=== PATIENT | female | born 1945 | race Two or more races ===

== ENCOUNTER 2020-07-13 20:34 | Emergency (ER) | payer OTHER ==
[~2020-07-13] VITALS: Ht 154.9 cm; Wt 81.6 kg
[2020-07-13] MEDS ORDERED: Labetalol 5mg/ml 20ml vial IV ONE (21:00)
--- NOTE | 2020-07-13 21:15 | Emergency Room Report ---
History of Present Illness General Chief Complaint: Hypertension Source: Patient Present Illness HPI 74-year-old female with a history of hypertension supposed to be taking propranolol daily here with hypertension and headache. Patient has been noncompliant with her propranolol and says "I only take it when I feel like I need to." She says that she only takes it about once per week. She supposed be taking it daily. Says that over the past several days she has had a worsening generalized headache. Has not taken her propranolol in several days. Denies vision changes, focal numbness or weakness, chest pain, palpitation, shortness of breath, cough, back pain, abdominal pain, nausea, vomiting, diarrhea, dysuria. Allergies: Coded Allergies: No Known Allergies (Unverified , 07/13/20) COVID-19 Screening Contact w/high risk pt: No Experienced COVID-19 symptoms?: No COVID-19 Testing performed AG SERVICE MANAGER: No Nursing Documentation-PMH Hx Diabetes: Yes Review of Systems All Other Systems: negative except mentioned in HPI Physical Exam Vital Signs Date Time Temp Pulse Resp B/P (MAP) Pulse Ox O2 Delivery O2 Flow Rate FiO2 07/13/20 20:45 98.2 72 18 218/88 (131) 96 Room Air Sp02 EP Interpretation: reviewed, normal General Appearance: no apparent distress, alert, non-toxic Head: normocephalic, atraumatic Eyes: bilateral eye normal inspection, bilateral eye PERRL ENT: hearing grossly normal, normal pharynx, no angioedema, normal voice Neck: full range of motion, supple/symm/no masses Respiratory: chest non-tender, lungs clear, normal breath sounds, speaking full sentences Cardiovascular #1: regular rate, rhythm, no edema Cardiovascular #2: 2+ carotid (R), 2+ carotid (L), 2+ radial (R), 2+ radial (L), 2+ dorsalis pedis (R), 2+ dorsalis pedis (L) Gastrointestinal: normal bowel sounds, non tender, soft, non-distended, no guarding, no rebound Rectal: deferred Genitourinary: normal inspection, no CVA tenderness Musculoskeletal: back normal, normal range of motion, gait/station normal, non- tender Neurologic: alert, motor strength/tone normal, oriented x3, sensory intact, responsive, speech normal Psychiatric: judgement/insight normal, memory normal, mood/affect normal, no suicidal/homicidal ideation Lymphatic: no adenopathy Medical Decision Making Diagnostic Impression: Primary Impression: Hypertension ER Course EKG: NSR, no ischemia, intervals WNL. No ectopy. Rate 70 bpm Rhythm strip: patient monitored for arrhythmias - no malignant dysrhythmias, runs of PVCs, nor pauses noted CXR: No infiltrate/effusion. Mediastinum within normal limits. No consolidations. No free air under the diaphragm. No bony abnormalities CT head: Unremarkable 74-year-old woman with history of hypertension supposed be taking propranolol, is noncompliant, here with hypertension. When patient arrived she was complaining of headache and vision changes. She did vomit once in the emergency department nonbilious nonbloody. EKG unremarkable. Chest x-ray and CT head were also normal. Currently awaiting results of blood work and urinalysis. Signed out to oncoming physician. Last Vital Signs Date Time Temp Pulse Resp B/P (MAP) Pulse Ox O2 Delivery O2 Flow Rate FiO2 07/13/20 20:45 98.2 72 18 218/88 (131) 96 Room Air Don Bowman M.D. Jul 13, 2020 21:14
[2020-07-13 21:21] VITALS: BP 189/90
--- NOTE | 2020-07-13 21:24 | NUR ---
Nurse Note: Pt walked in c/o dizziness, HTN, n/v since 07/12. Pt stated she takes propanlol only when she feels her BP is elevated. 218/88 at triage. PT stated she is not consistant with her medications; last blood sugar was >300. Pt placed on clinical research monitor; awake and alert. All orders completed; blood sent to lab. Pt taken to CT.
[2020-07-13 21:39] LABS: BASOPHILS % (AUTO) 0.9 % (0.0-2.0); EOSINOPHILS % (AUTO) 0.9 % (0.0-3.0); HEMATOCRIT 39.7 % (37.0-47.0); HEMOGLOBIN 12.8 G/DL (12.0-16.0); LYMPHOCYTES % (AUTO) 32.9 % (20.0-45.0); MEAN CORPUSCULAR VOLUME 95 FL (80-99); MONOCYTES % (AUTO) 6.3 % (1.0-10.0); PLATELET COUNT 314 K/UL (150-450); RED BLOOD COUNT 4.16 M/UL (4.20-5.40); RED CELL DISTRIBUTION WIDTH 12.8 % (11.6-14.8); WHITE BLOOD COUNT 13.5 K/UL (4.8-10.8)
[2020-07-13 21:47] VITALS: BP 173/61
--- NOTE | 2020-07-13 21:47 | NUR ---
Nurse Note: Pt back from CT; attached back to meter maker. BP 173/61
--- NOTE | 2020-07-13 21:51 | Diagnostic Imaging Report ---
EXAM: CT Head Without Intravenous Contrast CLINICAL HISTORY: AMS TECHNIQUE: Axial computed tomography images of the head/brain without intravenous contrast. CTDI is 53.4 mGy and DLP is 992.1 mGy-cm. One or more of the following dose reduction techniques were used: automated exposure control, adjustment of the mA and/or kV according to patient size, use of iterative reconstruction technique. COMPARISON: No relevant prior studies available. FINDINGS: Brain: No hemorrhage. No edema. Ventricles: No ventriculomegaly. Bones/joints: No acute fracture. Soft tissues: Unremarkable. Sinuses: No acute sinusitis. Mastoid air cells: No mastoid effusion. IMPRESSION: No acute intracranial process.
[2020-07-13 21:53] LABS: ANION GAP 8 mmol/L (5-15); BLOOD UREA NITROGEN 20 mg/dL (7-18); CALCIUM 9.4 MG/DL (8.5-10.1); CARBON DIOXIDE 26 MMOL/L (21-32); CHLORIDE 98 MMOL/L (98-107); CREATININE 0.9 MG/DL (0.55-1.30); POTASSIUM 3.7 MMOL/L (3.5-5.1); SODIUM 132 MMOL/L (136-145)
[2020-07-13 21:58] LABS: ALANINE AMINOTRANSFERASE 27 U/L (12-78); ALBUMIN 3.2 G/DL (3.4-5.0); ALBUMIN/GLOBULIN RATIO 0.9 (1.0-2.7); ALKALINE PHOSPHATASE 91 U/L (46-116); ASPARTATE AMINO TRANSFERASE 14 U/L (15-37); BILIRUBIN,TOTAL 0.4 MG/DL (0.2-1.0)
[2020-07-13] MEDS ORDERED: NORVASC10 MG ORAL (22:03)
--- NOTE | 2020-07-13 22:10 | NUR ---
Called [facility] for order picker
[2020-07-13 22:15] VITALS: BP 170/80
--- NOTE | 2020-07-13 22:15 | NUR ---
ED Nurse Note: Pt cleared by health care Provider for discharge. DC instructions/prescription was given and explained to pt and verbalized understanding of teachings. Instructed pt to follow up with PCP within one week. All medical deviecs such as ID band removed. IV removed and site bandaged. Pt is AAO x4, ambulatory and left with all personal belongings.
--- NOTE | 2020-07-14 11:57 | Diagnostic Imaging Report ---
Indication: Chest pain Technique: One view of the chest Comparison: none Findings: Lungs and pleural spaces are clear. Heart size is normal. Impression: No acute process
== END 2020-07-13 22:15 | disposition home or self-care (01) ==
LOC: EMR 21:00
DX: I10 Essential (primary) hypertension (principal); E11.9 Type 2 diabetes mellitus without complications
CPT/HCPCS: 36415; 70450; 71045; 80053; 83690; 83880; 84484; 85025; 93005; 96374; 96375; J2405; Z7502; 99284